=== PATIENT | male | born 1990 | race Caucasian/White ===

== ENCOUNTER 2019-03-04 19:14 | Emergency (ER) | payer SELFPAY ==
[2019-03-04] MEDS: IBUPROFEN 600 MG TAB PO (21:13)
== END 2019-03-04 22:15 | disposition home or self-care (01) ==
LOC: FTE 19:14
DX: S89.92XA Unspecified injury of left lower leg, initial encounter (principal); F17.210 Nicotine dependence, cigarettes, uncomplicated; V00.131A Fall from skateboard, initial encounter; Y92.9 Unspecified place or not applicable
CPT/HCPCS: 29505; 73562; 99283-25